=== PATIENT | female | born 1990 | race Caucasian/White ===

== ENCOUNTER 2016-04-18 05:47 | Inpatient (IN) | payer OTHER ==
[2016-04-18] MEDS ORDERED: RINGERS SOLUTION,LACTATED 1,000 ML IV ONE (07:08)
[2016-04-18] MEDS ORDERED: LIDOCAINE HCL 50 ML VIAL PERI PRN (07:08)
[2016-04-18] MEDS ORDERED: RINGERS SOLUTION,LACTATED 1,000 ML IV PRN (07:08)
[2016-04-18] MEDS ORDERED: OXYTOCIN/DEXTROSE 5%-WATER 30 UNITS/500 ML BAG IV ONE ×2 (07:08→12:32)
[2016-04-18] MEDS ORDERED: ONDANSETRON HCL/PF 2 MG/ML VIAL IV PRN (07:08)
[2016-04-18] MEDS ORDERED: DEXTROSE 5%-LACTATED RINGERS 1,000 ML IV PRN (07:08)
[2016-04-18] MEDS ORDERED: BUPIVACAINE HCL/0.9 % NACL/PF 250 ML EP PRN (07:38)
--- NOTE | 2016-04-18 07:43 | OR ---
Anesthesia Pre Procedure Eval Date of Service: 04/18/16 Pre Procedure Evaluation: Last Vital Signs Temp 36.2 C L 07/19/15 21:10 Pulse Resp BP 127/86 07/19/15 21:10 Pulse Ox Anesthesia Pre Procedure Evaluation DATE: 04/18/2016 TIME: 0740 INDICATIONS: Active labor, labor pain PAST MEDICAL HISTORY: Multipara patient in active labor requesting labor analgesia. Currently at 3 cm dilatation EXAM: Heart regular; lungs clear ASSESSMENT OF MEDICAL STATUS: Appropriate candidate for labor analgesia PLANNED PROCEDURE: Combination spinal epidural for labor analgesia Home Medications: HOME MEDICATIONS Vit#96/Ferrous Fum/FA [ S] 1 tab PO DAILY 04/18/16 [Last Taken 04/17/16]
[2016-04-18] MEDS ORDERED: fentaNYL CITRATE/PF 50 MCG/ML AMPUL IT SCH (07:45)
--- NOTE | 2016-04-18 08:08 | OR ---
Anesthesia Procedure Note - Anesthesia Procedure Note Date of Service: 04/18/16 Narrative: Vital Signs - Last Taken Temp 36.2 C L 07/19/15 21:10 Pulse Resp BP 127/86 07/19/15 21:10 Pulse Ox 04/18/16 07:43 ANESTHESIA PROCEDURE NOTE Date of Procedure: 04/18/2016 Time of procedure: 07 40. Performed by: TIFFANIE Alicia CRNA, MSN Vb Net Developer: Yaritza Stanton RN. Preprocedure diagnosis: Active labor, labor pain. Post procedure diagnosis: Same. Procedure: Labor Epidural Placement L3 4. Indications: Labor pain. Findings: See below. Details of the procedure: The patient was placed on the side of the bed in sitting position. The patient was prepped with DuraPrep and draped in a sterile fashion. Lidocaine 1% was infiltrated to the skin and subcutaneous tissues at the level of the L3 4 interspace. The epidural space was identified using a 18-gauge Tuohy needle with [id number] technique. Fentanyl 20 g was given intrathecally the intrathecal needle was then removed and the epidural catheter was threaded approximately 4 cm, the epidural needle was then removed, and after careful aspiration 3 mL of 1.5% lidocaine with 1-200,000 epinephrine was injected without change in maternal heart rate or sensorium. The catheter was then taped in place. EBL: Minimal. Fluids: N/A. Specimen: N/A. Post procedure condition: The patient tolerated the procedure well with good relief. No complications were noted. Thank you for this consultation. Jose Castro CRNA, ARNP, MSN
--- NOTE | 2016-04-18 11:23 | PN ---
Progess Note - Interim Narrative: 04/18/16 11:22 Subjective-patient comfortable after epidural Objective- SVE- 5/80/-2, clear fluid FHTs- 130s, moderate variability, early decelerations, accelerations [place]- every 2-3 minutes Assessment and plan- Labor-augmentation with Pitocin heart tones-Category 1 GBS status-negative Continue current plan of care.
[2016-04-18] MEDS ORDERED: BENZOCAINE/MENTHOL 81 SPRAY CAN TP PRN (12:32)
[2016-04-18] MEDS ORDERED: GLYCERIN/WITCH HAZEL LEAF 40 APPL BOX TP PRN (12:32)
[2016-04-18] MEDS ORDERED: SENNOSIDES 8.6 MG TABLET PO PRN (12:32)
[2016-04-18] MEDS ORDERED: oxyCODONE HCL/ACETAMINOPHEN 1 TAB TABLET PO PRN (12:32)
[2016-04-18] MEDS ORDERED: BISACODYL 10 MG SUPP.RECT RC PRN (12:32)
--- NOTE | 2016-04-18 12:36 | OR ---
Operative Report - Dictated Report Narrative: Spontaneous Vaginal Delivery Viable male with APGARS of 8 at 1 minute and 9 at 5 minutes. Delivered at 1214. Presentation was MIGEL. A tight nuchal cord was noted and this was able to be reduced prior to delivery of the anterior and posterior shoulders. The right anterior shoulder delivered with gentle downward traction followed by the posterior shoulder and the remainder of the baby. Baby was placed on the maternal abdomen and dried and stimulated. The cord was clamped and cut after approximately 90 seconds. Weight: 7 pounds 13.9 ounces or 3571 g Placenta was delivered spontaneously and intact. Second-degree midline vaginal laceration that extended up the left labia that was repaired with 2-0 Vicryl. Estimated blood loss: 100 ml Mother and baby tolerated delivery well. History for Definition: * The number of deliveries resulting in a live the patient experienced prior to current hospitalization * The previous delivery of live twins or any live multiple gestation is considered one live event. *If primagravida or nulliparous is documented select zero for the number of previous live births. Live Events: 1
[2016-04-18] MEDS: oxyCODONE HCL/ACETAMINOPHEN 1 TAB TABLET PO PRN ×3 (15:56→23:12)
[2016-04-18] MEDS: IBUPROFEN 800 MG TABLET PO PRN ×2 (15:56→23:12)
--- NOTE | 2016-04-18 18:06 | PN ---
Progess Note - Interim Narrative: 04/18/16 17:59 progress note Subjective: The patient is doing well. She is ambulating, voiding, tolerating by mouth. She was complaining of increased pain in her left buttock and pain with sitting. The nurses inspected her perineum and found a hematoma site was called in to evaluate. Objective: General: No acute distress Abdomen: Soft, nontender, fundus is firm just below the umbilicus Extremities: minimal edema, nontender to palpation Perineum: Posterior fornix extended into the right labia majora swelling that protrudes from the vagina approximately 3 cm and edema and tenderness and bluish discoloration noted extended into the left buttock by approximately 5 cm Assessment and plan: day 0, approx 5 hours after uncomplicated Left labial hematoma extending into the buttock: Reassurance provided, discussed expectant management and manually might need to do surgical management , discussed course of recovery. Encouraged dermoplast spray and frequent ice use on the perineum. Questions and concerns were addressed. Continue to monitor closely. Routine care. 04/18/16 18:05
[2016-04-18] MEDS: DOCUSATE SODIUM 100 MG CAPSULE PO SCH (20:16)
[2016-04-19] MEDS: oxyCODONE HCL/ACETAMINOPHEN 1 TAB TABLET PO PRN ×3 (03:25→21:20)
[2016-04-19] MEDS: IBUPROFEN 800 MG TABLET PO PRN ×3 (05:25→21:19)
[2016-04-19] MEDS: DOCUSATE SODIUM 100 MG CAPSULE PO SCH ×2 (09:39→21:20)
--- NOTE | 2016-04-19 10:13 | PN ---
Progess Note - Interim Narrative: 04/19/16 10:11 progress note Subjective: The patient is doing well. She is ambulating, voiding, tolerating by mouth. She has minimal pain and moderate lochia. Bottom is still quite painful but stable. Objective: General: No acute distress Abdomen: Soft, nontender, fundus is firm just below the umbilicus Perineum: Hematoma is not as large, not as firm, and not as tender Extremities: minimal edema, nontender to palpation Assessment and plan: day 1 Feeding: Breast Pain: Controlled with by mouth medication control: depo, then mirena Routine care.
[2016-04-19] MEDS ORDERED: metroNIDAZOLE 500 MG TABLET PO SCH (22:15)
[2016-04-19] MEDS ORDERED: CEPHALEXIN MONOHYDRATE 500 MG CAPSULE PO SCH (22:15)
[2016-04-19] MEDS ORDERED: CEPHALEXIN MONOHYDRATE 250 MG CAPSULE PO SCH (22:45)
[2016-04-19] MEDS: metroNIDAZOLE 250 MG TABLET PO SCH (22:48)
[2016-04-20] MEDS: oxyCODONE HCL/ACETAMINOPHEN 1 TAB TABLET PO PRN ×3 (01:40→14:51)
[2016-04-20] MEDS: CEPHALEXIN MONOHYDRATE 500 MG CAPSULE PO SCH ×2 (06:55→14:07)
[2016-04-20] MEDS: metroNIDAZOLE 250 MG TABLET PO SCH ×2 (06:55→14:07)
[2016-04-20] MEDS: DOCUSATE SODIUM 100 MG CAPSULE PO SCH (08:21)
[2016-04-20] MEDS: IBUPROFEN 800 MG TABLET PO PRN (08:22)
[2016-04-20] MEDS ORDERED: MEDROXYPROGESTERONE ACET 150 MG/ML SYRG IM ONE (10:00)
--- NOTE | 2016-04-20 12:45 | PN ---
Progess Note - Interim Narrative: 04/20/16 12:43 progress note Subjective: The patient is doing well. She is ambulating, voiding, tolerating by mouth. She has minimal pain and moderate lochia. Objective: General: No acute distress Abdomen: Soft, nontender, fundus is firm just below the umbilicus Perineum: Hematoma that is improving, continues to be tender, malodorous discharge noted Extremities: minimal edema, nontender to palpation Assessment and plan: day 2 Feeding: Breast Pain: Controlled with by mouth medication control: Depo-Provera until Mirena Hematoma: Continue antibiotics Routine care.
[2016-04-20 14:10] VITALS: BP 131/61
== END 2016-04-20 15:51 | disposition home or self-care (01) | DRG 775 ==
LOC: OBCLINIC 05:47 → OB 06:18
PROVIDERS: ADMIT Obstetrics & Gynecology Gynecologic Oncology; ATTEND Obstetrics & Gynecology Gynecologic Oncology
PROC: 10E0XZZ Delivery of Products of Conception, External Approach (ICD-10-PCS; principal; 2016-04-18)
PROC: 0KQM0ZZ Repair Perineum Muscle, Open Approach (ICD-10-PCS; 2016-04-18)
PROC: 4A1H7CZ Monitoring of Products of Conception, Cardiac Rate, Via Natural or Artificial Opening (ICD-10-PCS; 2016-04-18)
PROC: 3E0S3CZ (ICD-10-PCS; 2016-04-18)
DX: O69.1XX0 Labor and delivery complicated by cord around neck, with compression, not applicable or unspecified (principal); O70.1 Second degree perineal laceration during delivery; O76 Abnormality in fetal heart rate and rhythm complicating labor and delivery; N90.89 Other specified noninflammatory disorders of vulva and perineum; O99.334 Smoking (tobacco) complicating childbirth; Z3A.40 40 weeks gestation of pregnancy; Z37.0 Single live birth

== ENCOUNTER 2016-08-22 10:26 | Emergency (ER) | payer OTHER ==
[2016-08-22 10:34] VITALS: BP 131/84
[2016-08-22] MEDS ORDERED: DEXAMETHASONE SOD PHOSPHATE 10 MG/ML VIAL IM ONE (10:40)
[2016-08-22] MEDS ORDERED: DEXAMETHASONE SOD PHOSPHATE 10 MG/ML VIAL ONE (10:52)
--- NOTE | 2016-08-22 10:53 | ERNOTE ---
ENT HPI Date of Service: 08/22/16 Presenting Symptoms: other - Sore Throat Time Seen by Provider: 08/22/16 10:36 Source: patient Exam Limitations: no limitations - Immun/Allergies/Home Medications Immunizations: IMMUNIZATION HX Immunizations Up to Date Yes History of Influenza Vaccine Yes Hx Pneumococcal Vaccination No Allergies/Adverse Reactions: Allergies Allergy/AdvReac Type Severity Reaction Status Date / Time tramadol AdvReac Severe Vomiting Verified 08/22/16 10:34 adhesive AdvReac Unknown Other Verified 08/22/16 10:34 Home Medications: HOME MEDICATIONS Vit#96/Ferrous Fum/FA [ S] 1 tab PO DAILY 04/18/16 [Last Taken 04/17/16] Cephalexin Monohydrate [Keflex] 500 mg PO Q8H 14 Days 04/20/16 [Last Taken Unknown] Ibuprofen [Motrin] 800 mg PO Q6H PRN #0 tablet 04/20/16 [Last Taken Unknown] Amox Tr/Potassium Clavulanate [Augmentin 875-125 Tablet] 875 mg PO Q12H #20 tab 08/22/16 [Last Taken Unknown] Sertraline HCl [Zoloft] 50 mg PO DAILY 08/22/16 [Last Taken Unknown] Xanax 0.5 mg PO TID 08/22/16 [Last Taken Unknown] - History of Present Illness Narrative: Patient presents for sore throat. She relates she has had a ST since last tuesday. She has also been having bilateral ear pain right greater than left. She was seen thrusday and placed on ABx. Keflex. She states her throat is still sore. Her ear is also still hurting. No fever. Hurts to swallow but still able to drink and no drooling. No CP or SOB. No rash. Pain can be severe with swallowing. No unilateral throat pain ENT Location: Present: ear (R), throat Prearrival Treatment: Present: other - keflex Modifying Factors - Improves: Reports: other - nothing Modifying Factors - Worsens: Reports: other - swallowing Associated Symptoms - ENT: Denies: fever Review of Systems - Review of Systems Constitutional: Absent: fever EYE: Present: no symptoms reported ENT: Present: See HPI Respiratory: Absent: shortness of breath Cardiology: Absent: chest pain Gastrointestinal/Abdominal: Absent: abdominal pain Skin: Absent: rash Neurological: Absent: weakness - Patient's Past Medical History Patient History - Medical: No pertinent hx Patient History - Cardiac/Respiratory: Asthma Patient History - Cancer: No Hx of Cancer Patient History - Surgical Procedures: Other Patient History - Other: None LMP (Calendar): 07/19/15 - Social History Living Situations: home Abuse History: No History of abuse Psych History: Hx of Anxiety, Hx of Depression Alcohol Use: occasionally Drug Use: none - Immunizations Immunizations Up to Date: Yes Hx Pneumococcal Vaccination: No History of Influenza Vaccine: Yes Physical Exam - Physical Exam General Appearance: Present: alert, no apparent distress, other - well hydrated , non-toxic, sitting on the edge of the bed, voice normal, speaking in full sentences. Eye Exam: Normal inspection: bilateral, PERRL: bilateral Ears, Nose, Throat: Present: abnormal TM (R), pharyngeal erythema, tonsillar exudate, other - Right OM noted. No mastoiditis. Exam c/w pharynfitis without peritonsillar abscess, retrophgaryngeal abscess or epiglottitis.. Absent: pharyngeal swelling, tonsillar swelling, dry mucous membranes Neck: Present: normal inspection, nontender, supple Respiratory: Present: no respiratory distress, normal breath sounds, no accessory muscle use, lungs clear Cardiovascular/Chest: Present: regular rate, rhythm Gastrointestinal/Abdominal: Present: normal bowel sounds, nontender, soft Back Exam: Present: normal range of motion Extremity Exam: Present: normal inspection Neurological Exam: Present: alert, normal mood/affect, no motor/sensory deficits Skin Exam: Present: normal color, warm/dry. Absent: skin rash ED Progress - Results and Orders Patient's Lab Results:: I have reviewed the patient's lab results. - Vital Signs Patient's Vital Signs:: I have reviewed the patient's vital signs. Vital Signs: Vital Signs 08/22/16 10:30 Temperature 36.4 C L Pulse Rate 82 Respiratory 12 Rate Blood Pressure 131/84 O2 Sat by Pulse 100 Oximetry - Progress/Reassessment Chief Complaint: Sore Throat Progress Note-Subjective: 08/22/16 11:16 [place] negative. Nothing to suggest PHOTOGRAPHIC ARTIST, RPA or epiglottitis. she feels like going home. I disucssed warning signs and reasons to return as well as the need for close f/u. Departure Clinical Impression: Sore throat, Otitis media - Departure Disposition: Home self-care Condition: Stable Instructions: Sore Throat, Otitis Media, Adult, [id number] Additional Instructions: Stop Keflex and begin new antibiotic. Tylenol/Ibuprofen. Fluids. Follow-up within 3 days for a re-check. Return for swelling on one side of neck or throat , fever, trouble breathing or swallowing or if your condition worsens or changes in any way. Prescriptions: Amox Tr/Potassium Clavulanate [Augmentin 875-125 Tablet] 875 mg PO Q12H #20 tab
--- OUTSIDE RECORDS SUMMARY | 2016-08-22 11:09 | XMS REPORT | Continuity of Care Document ---
:1990 Author Organization [facility] ([facility]) Address [place] [place] [address] Phone [phone] Care Team Providers Name Role Phone Rakel So Primary Care Provider [phone] Source Comments This disclosure is being made pursuant to the Care Everywhere program, applicable federal and state laws, and may not contain all informaitonavailable regarding this patient.[facility] ([facility]) Active Allergies and Adverse Reactions Allergen Noted Date Severity Reactions Comments Tramadol 01/22/2015 OTHER Current Medications Prescription Sig. Disp. Refills Start Date End Date Status ALPRAZOLAM 0.5 mg tablet 11/26/2014 Active CITALOPRAM 40 mg tablet 01/19/2015 Active HYDROXYZINE PAMOATE 25 mg capsule 01/19/2015 Active multivitamin with minerals PO Active Active Problems Problem Noted Date Palpitations 01/22/2015 Tricuspid regurgitation 01/22/2015 Overview: Diagnosed at 16 yoa on pre- physical Social History Tobacco Use Types Packs/Day Years Used Date Current Every Day Smoker Cigarettes 0.15 10 Smokeless Tobacco: Never Used Tobacco Cessation:Ready to Quit: No Comments: Alcohol Use Drinks/Week oz/Week Comments No Last Filed Vital Signs Vital Sign Reading Time Taken Blood Pressure 120/70 02/05/2015 10:10 AM CDT Pulse 70 02/05/2015 10:10 AM CDT Temperature - - Respiratory Rate - - Height 1.702 m (5' 7") 02/05/2015 10:10 AM CDT Weight 84.823 kg (187 lb) 02/05/2015 10:10 AM CDT Body Mass Index 29.28 02/05/2015 10:10 AM CDT Oxygen Saturation - - Plan of Care Health Maintenance Due Date Last Done Comments Hepatitis B Vaccine (1 of 3 - Primary Series) 1990 Tdap Vaccine 09/02/1999 Cervical Cancer Screening 2006 Lipid Disorder Screening 2006 MMR Vaccine 2006 Td Vaccine 2006 Varicella Vaccine (1 of 2 - Adult - No Evidence of 2006 Immunity) Pneumococcal Vaccine (1 of 1 - PPSV23) 09/02/2007 Influenza Vaccine: Seasonal (#1) 11/17/2015 Results from Last 3 Months Not on file
== END 2016-08-22 11:26 | disposition home or self-care (01) ==
LOC: ER 10:26
DX: J02.9 Acute pharyngitis, unspecified (principal); H66.90 Otitis media, unspecified, unspecified ear